=== PATIENT | female | born 1995 | race Caucasian/White ===

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

== ENCOUNTER 2017-08-11 | Emergency (ER) | payer SELFPAY ==
[2017-08-11 00:06] VITALS: BP 145/63
[2017-08-11] MEDS ORDERED: BENZONATATE 100 MG CAPSULE. PO ONE (00:15)
[2017-08-11] MEDS ORDERED: ONDANSETRON ODT 4 MG TAB.RAPDIS. PO ONE (00:15)
[2017-08-11] MEDS ORDERED: predniSONE 10 MG TABLET PO ONE (00:15)
[2017-08-11] MEDS ORDERED: IPRATRPIUM/ALBUTEROL 0.5/2.5MG 3 ML NEBU. NEB ONE (00:15)
--- NOTE | 2017-08-11 00:24 | PHYS DOC ---
Past Medical History Past Medical History: No Pertinent History Past Surgical History: Other Additional Past Surgical Histo: pt reports eye surgery Alcohol Use: None Drug Use: None Adult General Chief Complaint Chief Complaint: SORE THROAT HPI HPI Patient is a 21 year old female with no significant medical history who presents with a productive cough for 1-1/2 weeks and vomiting. Patient denies having posttussis emesis. She states she does not know if she is or not. Review of Systems Review of Systems Constitutional: Denies fever or chills [] Eyes: Denies change in visual acuity, redness, or eye pain [] HENT: Denies nasal congestion or sore throat [] Respiratory: reports cough denies shortness of breath [] Cardiovascular: No additional information not addressed in HPI [] GI:Reports vomiting. Denies abdominal pain, nausea, bloody stools or diarrhea [] : Denies dysuria or hematuria [] Musculoskeletal: Denies back pain or joint pain [] Integument: Denies rash or skin lesions [] Neurologic: Denies headache, focal weakness or sensory changes [] All other systems were reviewed and found to be within normal limits, except as documented in this note. Current Medications Current Medications Current Medications Medications (Trade) Dose Ordered Sig/Mat Start Time Stop Time Status Last Admin Dose Admin Albuterol/ Ipratropium (Duoneb) 3 ml 1X ONCE 08/11/17 00:15 08/11/17 00:16 DC 08/11/17 00:26 3 ML Benzonatate (Tessalon Perle) 100 mg 1X ONCE 08/11/17 00:15 08/11/17 00:16 DC 08/11/17 00:29 100 MG Ondansetron HCl (Zofran Odt) 4 mg 1X ONCE 08/11/17 00:15 08/11/17 00:16 DC 08/11/17 00:29 4 MG Prednisone (Prednisone) 50 mg 1X ONCE 08/11/17 00:15 08/11/17 00:16 DC 08/11/17 00:29 50 MG Allergies Allergies Allergies Coded Allergies Type Severity Reaction Last Updated Verified No Known Drug Allergies 12/21/16 No Physical Exam Physical Exam Constitutional: Well developed, well nourished, no acute distress, non-toxic appearance. [] HENT: Normocephalic, atraumatic, bilateral external ears normal, oropharynx moist, no oral exudates, nose normal. [] Eyes: PERRLA, EOMI, conjunctiva normal, no discharge. [] Neck: Normal range of motion, no tenderness, supple, no stridor. [] Cardiovascular:Heart rate regular rhythm, no murmur [] Lungs & Thorax: Patient is actively coughing in the ED, slightly diminished breath sounds to posterior lung bases. Abdomen: Bowel sounds normal, soft, no tenderness, no masses, no pulsatile masses. [] Skin: Warm, dry, no erythema, no rash. [] Back: No tenderness, no CVA tenderness. [] Extremities: No tenderness, no cyanosis, no clubbing, ROM intact, no edema. [] Neurologic: Alert and oriented X 3, normal motor function, normal sensory function, no focal deficits noted. [] Psychologic: Affect normal, judgement normal, mood normal. [] Current Patient Data Vital Signs Vital Signs Date Time Temp Pulse Resp B/P (MAP) Pulse Ox O2 Delivery O2 Flow Rate FiO2 08/11/17 00:27 100 Room Air 08/11/17 00:06 98.1 84 22 98.1 Lab Values Laboratory Tests Test 08/11/17 00:22 POC Urine HCG, Qualitative Hcg negative (Negative) EKG EKG [] Radiology/Procedures Radiology/Procedures [] Course & Med Decision Making Course & Med Decision Making Pertinent Labs and Imaging studies reviewed. (See chart for details) This is a 21-year-old female presenting to the ED today with a productive cough for 1-1/2 weeks with vomiting. test is negative.Symptoms are likely bronchitis her vomiting is likely posttussis emesis. She was started on prednisone and albuterol breathing treatments and Tessalon Perles and discharged with the same. She was also discharged with azithromycin. She was discharged with Zofran for nausea vomiting. Provided return precautions and discharged in stable condition. Dragon Disclaimer Dragon Disclaimer This electronic medical record was generated, in whole or in part, using a voice recognition dictation system. Departure Departure Impression: Primary Impression: Acute bronchitis Additional Impression: Vomiting Disposition: HOME, SELF-CARE Condition: STABLE Referrals: NO PCP (PCP) follow up with your doctor in 1-2 weeks Patient Instructions: Acute Bronchitis, Nausea and Vomiting, [id number] Additional Instructions: You were seen with symptoms consistent of bronchitis. Take the prescribed medications as ordered. Complete your antibiotics. Take Tylenol/ Motrin for pain or fever. Follow-up with your own doctor in the next 1-2 weeks. Scripts Azithromycin (AZITHROMYCIN TABLET) 250 Mg Tablet 1 PKG PO UD, #6 TAB Prov: CLIFF CABRERA APRN 08/11/17 Albuterol Sulfate (PROAIR HFA INHALER) 8.5 Gm Hfa.aer.ad 1 PUFF INH PRN Q6HRS Y for SHORTNESS OF BREATH, #1 INHALER 0 Refills Prov: CLIFF CABRERA APRN 08/11/17 Cetirizine Hcl (ZYRTEC) 10 Mg Tablet 1 TAB PO DAILY, #30 TAB 2 Refills Prov: CLIFF CABRERA APRN 08/11/17 Ondansetron (ZOFRAN ODT) 4 Mg Tab.rapdis 1 TAB SL Q8HRS, #15 TAB Prov: CLIFF CABRERA APRN 08/11/17 Benzonatate (TESSALON PERLE) 100 Mg Capsule 1 CAP PO TID, #30 CAP Prov: CLIFF CABRERA APRN 08/11/17 Prednisone (PREDNISONE) 50 Mg Tablet 1 TAB PO DAILY, #4 TAB Prov: CLIFF CABRERA APRN 08/11/17 Problem Qualifiers Primary Impression: Acute bronchitis Bronchitis organism: unspecified organism Qualified Codes: J20.9 - Acute bronchitis, unspecified Additional Impression: Vomiting Vomiting type: unspecified Vomiting Intractability: non-intractable Nausea presence: unspecified Qualified Codes: R11.10 - Vomiting, unspecified CLIFF CABRERA APRN Aug 11, 2017 00:24
[2017-08-11] MEDS ORDERED: ONDA4TAB10 SL (00:41)
[2017-08-11] MEDS ORDERED: BENZ100C PO (00:41)
[2017-08-11] MEDS ORDERED: PRED50TA PO (00:41)
[2017-08-11] MEDS ORDERED: AZIT250T6 PO (00:41)
[2017-08-11] MEDS ORDERED: CETI10TA22 PO (00:41)
[2017-08-11] MEDS ORDERED: PROAIR HFA8.5 GM INH (00:41)
[2017-08-11 06:42] LABS: NEGATIVE OBC STREP NEG; POSITIVE OBC STREP POS
== END 2017-08-11 00:51 | disposition home or self-care (01) ==
LOC: ER
DX: J20.9 Acute bronchitis, unspecified (principal)
CPT/HCPCS: 81025; 87070; 87880; 94640; 99284; J7512; J7620; Q0162

== ENCOUNTER 2018-06-30 22:50 | Emergency (ER) | payer SELFPAY ==
[~2018-06-30] VITALS: Ht 170.2 cm; Wt 90.7 kg
[~2018-06-30 22:50] MED LIST: AZIT250T6 PO; BENZ100C PO; CETI10TA22 PO; ONDA4TAB10 SL; PRED50TA PO; PROAIR HFA8.5 GM INH
[2018-06-30 23:10] VITALS: BP 136/60
[2018-06-30] MEDS ORDERED: LIDOCAINE 1% PF 2 ML VIAL. ONE (23:24)
[2018-06-30] MEDS ORDERED: SULF1TAB24 PO (23:43)
--- NOTE | 2018-06-30 23:43 | PHYS DOC ---
Past Medical History Past Medical History: No Pertinent History Past Surgical History: No Surgical History, Other Additional Past Surgical Histo: pt reports eye surgery Alcohol Use: None Drug Use: None Adult General Chief Complaint Chief Complaint: FINGER INJURY HPI HPI 22-year-old female presents for evaluation of pain and tenderness around the fingernail of the right index finger for one week. She reports yesterday she opened it and drained some purulent discharge from it. It is gotten more swollen and red. She is up-to-date on tetanus immunization. Denies other injuries. Review of Systems Review of Systems Constitutional: Denies fever or chills [] Musculoskeletal: Denies back pain or joint pain [] I Neurologic: Denies headache, focal weakness or sensory changes [] Endocrine: Denies polyuria or polydipsia [] All other systems were reviewed and found to be within normal limits, except as documented in this note. Current Medications Current Medications Current Medications Medications (Trade) Dose Ordered Sig/Mat Start Time Stop Time Status Last Admin Dose Admin Lidocaine HCl (Xylocaine-Mpf 1% 2ml Vial) 2 ml STK-MED ONCE 06/30/18 23:24 06/30/18 23:25 DC Allergies Allergies Allergies Coded Allergies Type Severity Reaction Last Updated Verified No Known Drug Allergies 12/21/16 No Physical Exam Physical Exam Constitutional: Well developed, well nourished, no acute distress, non-toxic appearance. [] Skin: Paronychia to right index finger Extremities: Tenderness to distal aspect of right index finger consistent with paronychia, redness and swelling around the nail, full range of motion to the finger Neurologic: Alert and oriented X 3, normal motor function, normal sensory function, no focal deficits noted. [] Psychologic: Affect normal, judgement normal, mood normal. [] Current Patient Data Vital Signs Vital Signs Date Time Temp Pulse Resp B/P (MAP) Pulse Ox O2 Delivery O2 Flow Rate FiO2 06/30/18 23:10 98.5 71 16 136/60 (85) 97 Room Air 98.5 EKG EKG [] Radiology/Procedures Radiology/Procedures [Incision and drainage was performed on the paronychia to the right index finger , 0.25 mg of lidocaine 1% was injected into the area, and 11 blade was used to make small opening, bloody drainage only, wound and finger were cleansed with Betadine and normal saline.] Course & Med Decision Making Course & Med Decision Making Pertinent Labs and Imaging studies reviewed. (See chart for details) [Incision and drainage was performed on the paronychia to the right index finger , patient is given prescription for Bactrim and instructed to do warm water soaks, follow-up with her primary care doctor in 2-3 days, return to ER for new or worsening symptoms.] Dragon Disclaimer Dragon Disclaimer This electronic medical record was generated, in whole or in part, using a voice recognition dictation system. Departure Departure Impression: Primary Impression: Paronychia Disposition: HOME, SELF-CARE Condition: STABLE Referrals: NO PCP (PCP) Patient Instructions: Paronychia, [id number] Scripts Sulfamethoxazole/Trimethoprim (BACTRIM DS TABLET) 1 Each Tablet 1 TAB PO BID, #20 TAB Prov: LENNOX CANNON APRN 06/30/18 LENNOX CANNON APRN Jun 30, 2018 23:43
== END 2018-07-01 00:02 | disposition home or self-care (01) ==
LOC: ER 22:50
DX: L03.011 Cellulitis of right finger (principal)
CPT/HCPCS: 10060; 99283

== ENCOUNTER 2020-02-19 17:49 | Emergency (ER) | payer SELFPAY ==
[~2020-02-19] VITALS: Ht 170.2 cm; Wt 100.0 kg
[~2020-02-19 17:49] MED LIST changes: +ALBU2.5V8 INH; -CETI10TA22 PO; +CETI10TA24 PO; -PROAIR HFA8.5 GM INH; +SULF1TAB24 PO
[2020-02-19 18:19] LABS: BILIRUBIN,URINE NEGATIVE (NEG); CLARITY,URINE CLEAR; COLOR,URINE YELLOW; NITRITE,URINE NEGATIVE (NEG); PROTEIN,URINE NEGATIVE (NEG-TRACE); UROBILINOGEN,URINE 0.2 mg/dL (0.2 mg/dL)
[2020-02-19] MEDS ORDERED: IV NORMAL SALINE 1000ML BAG 1,000 ML IV SCH (18:21)
--- NOTE | 2020-02-19 18:24 | PHYS DOC ---
Past Medical History Past Medical History: No Pertinent History Past Surgical History: No Surgical History Additional Past Surgical Histo: pt reports eye surgery Smoking Status: Never Smoker Alcohol Use: None Drug Use: None General Adult EDM: Chief Complaint: ABDOMINAL PAIN HPI: HPI: Patient is a 24 year old female who presents with complaint of right upper quadrant pain that started this morning. Patient rates pain at an 8 out of 10 and states that she has been having nausea and vomiting today. She states that she has had intermittent pain in this area despite having had cholecystectomy about 5 months ago. She states that the pain is exactly the same as before she had the gallbladder removed. She denies any fever. She does indicate that the pain radiates into her back just below the right shoulder blade. [] Review of Systems: Review of Systems: Constitutional: Denies fever or chills. [] Respiratory: Denies cough or shortness of breath. [] Cardiovascular: Denies chest pain or edema. [] GI: Complains of abdominal pain with nausea and vomiting. Denies diarrhea. [] Neurologic: Denies headache, focal weakness or sensory changes. [] A full 10 point review of systems has been reviewed and is otherwise negative. Heart Score: Risk Factors: Risk Factors: DM, Current or recent (<one month) smoker, HTN, HLP, family history of CAD, obesity. Risk Scores: Score 0 - 3: 2.5% MACE over next 6 weeks - Discharge Home Score 4 - 6: 20.3% MACE over next 6 weeks - Admit for Clinical Observation Score 7 - 10: 72.7% MACE over next 6 weeks - Early Invasive Strategies Allergies: Allergies: Allergies Coded Allergies Type Severity Reaction Last Updated Verified No Known Drug Allergies 12/21/16 No Physical Exam: PE: Constitutional: Well developed, well nourished, no acute distress, non-toxic appearance. [] HENT: Normocephalic, atraumatic, bilateral external ears normal, oropharynx moist, no oral exudates, nose normal. [] Eyes: PERRLA, EOMI, conjunctiva normal, no discharge. [] Neck: Normal range of motion, no tenderness, supple. [] Cardiovascular: Regular rate and rhythm [] Lungs & Thorax: Bilateral breath sounds clear to auscultation [] Abdomen: Bowel sounds normal, soft, with moderate epigastric and right upper quadrant tenderness. [] Skin: Warm, dry, no erythema, no rash. [] Extremities: No tenderness, no cyanosis, no clubbing, ROM intact, no edema. [] Neurologic: Alert and oriented X 3, no focal deficits noted. [] Current Patient Data: Labs: Laboratory Tests Test 02/19/20 18:06 POC Urine HCG, Qualitative Hcg negative (Negative) Vital Signs: Vital Signs Date Time Temp Pulse Resp B/P (MAP) Pulse Ox O2 Delivery O2 Flow Rate FiO2 02/19/20 18:08 98.3 86 20 150/74 (99) 97 Room Air 98.3 EKG: EKG: [] Radiology/Procedures: Radiology/Procedures: [] Impression: PROCEDURE: CT ABD PELV W/ IV CONTRST ONLY EXAM: Abdomen and pelvis CT with intravenous contrast. HISTORY: Pain. TECHNIQUE: Computed tomographic images of the abdomen and pelvis were obtained following the administration of intravenous contrast. Multiplanar reformatting was performed. *One or more of the following individualized dose reduction techniques were utilized for this examination: 1. Automated exposure control. 2. Adjustment of the mA and/or kV according to patient size. 3. Use of iterative reconstruction technique. COMPARISON: None. FINDINGS: Evaluation of the lower thorax is unremarkable. No suspicious hepatic lesion is seen. The spleen is mildly enlarged. The gallbladder is surgically absent. The pancreas, adrenal glands and kidneys are unremarkable. There is no appendicitis. There is no bowel obstruction. There is no abnormal bowel wall thickening. The urinary bladder, uterus and left ovary are unremarkable. There is a suspected dominant peripherally enhancing right ovarian cyst measuring 2.4 cm. There is no lymphadenopathy. There is no suspicious osseous lesion. There are multiple Schmorl's nodes within the lumbar spine. There is no suspicious osseous lesion. IMPRESSION: 1. No convincing acute abdominal finding. 2. 2.4 cm dominant right ovarian follicle/follicular cyst. 3. Mild splenomegaly. This may be within normal limits for patient body habitus. Electronically signed by: Kenya Nunez MD (02/19/2020 8:18 PM) [facility] Course & Med Decision Making: Course & Med Decision Making Pertinent Labs and Imaging studies reviewed. (See chart for details) [] Dragon Disclaimer: Dragon Disclaimer: This electronic medical record was generated, in whole or in part, using a voice recognition dictation system. Departure Departure Impression: Primary Impression: Right upper quadrant abdominal pain Additional Impression: Right ovarian cyst Disposition: HOME, SELF-CARE Condition: STABLE Referrals: NO PCP (PCP) Patient Instructions: Abdominal Migraine, Ovarian Cyst Scripts Ondansetron (ONDANSETRON ODT) 4 Mg Tab.rapdis 1 TAB PO PRN Q6-8HRS PRN for NAUSEA, #15 TAB Prov: JOSE TAYLOR Jr. DO 02/19/20 Hydrocodone/Apap 5-325 (NORCO 5-325 TABLET) 1 Each Tablet 1-2 EACH PO PRN Q6HRS PRN for PAIN, #15 as needed for pain Prov: JOSE TAYLOR Jr. DO 02/19/20 Justicifation of Admission Dx: Justifications for Admission: Justification of Admission Dx: Comment: (Not applicable) JOSE TAYLOR Jr. DO Feb 19, 2020 18:24
[2020-02-19] MEDS ORDERED: HYDROmorphone 2 MG/ML VIAL IV/SQ PRN (18:30)
[2020-02-19 18:37] LABS: BACTERIA,URINE FEW /HPF (0-FEW); RBC,URINE RARE /HPF (0-2); SQUAMOUS EPITHELIAL CELL,UR FEW /LPF; WBC,URINE OCC /HPF (0-4)
[2020-02-19 18:50] LABS: BASO # 0.1 x10^3/uL (0.0-0.2); BASO % 1 % (0-3); EOS % 0 % (0-3); HEMATOCRIT 36.9 % (36.0-47.0); HEMOGLOBIN 12.5 g/dL (12.0-15.5); LYMPH # 2.6 x10^3/uL (1.0-4.8); LYMPH % 24 % (24-48); MEAN CORPUSCULAR HEMOGLOBIN 28 pg (25-35); MEAN CORPUSCULAR HGB CONC 34 g/dL (31-37); MEAN CORPUSCULAR VOLUME 82 fL (79-100); MONO # 0.6 x10^3/uL (0.0-1.1); MONO % 5 % (0-9); NEUT # 7.5 x10^3/uL (1.8-7.7); NEUT % 70 % (31-73); PLATELET COUNT 267 x10^3/uL (140-400); RED BLOOD COUNT 4.49 x10^6/uL (3.50-5.40); RED CELL DISTRIBUTION WIDTH 16.2 % (11.5-14.5); WHITE BLOOD COUNT 10.8 x10^3/uL (4.0-11.0)
[2020-02-19 18:55] LABS: CALCIUM 9.2 mg/dL (8.5-10.1); CREATININE 0.9 mg/dL (0.6-1.0); GFR 78.3; POTASSIUM 4.1 mmol/L (3.5-5.1)
[2020-02-19 19:00] LABS: ALBUMIN 3.9 g/dL (3.4-5.0); ALBUMIN/GLOBULIN RATIO 1.3 (1.0-1.7); TOTAL BILIRUBIN 0.2 mg/dL (0.2-1.0)
[2020-02-19] MEDS ORDERED: ONDANSETRON PF 4 MG/2 ML VIAL. IVP ONE (19:00)
[2020-02-19] MEDS ORDERED: CONTRAST GIVEN. MC PRN (20:00)
[2020-02-19] MEDS ORDERED: IOHEXOL 300 MG/ML 100ML VIAL. IV ONE (20:00)
--- NOTE | 2020-02-19 20:21 | RAD ---
EXAM: Abdomen and pelvis CT with intravenous contrast. HISTORY: Pain. TECHNIQUE: Computed tomographic images of the abdomen and pelvis were obtained following the administration of intravenous contrast. Multiplanar reformatting was performed. *One or more of the following individualized dose reduction techniques were utilized for this examination: 1. Automated exposure control. 2. Adjustment of the mA and/or kV according to patient size. 3. Use of iterative reconstruction technique. COMPARISON: None. FINDINGS: Evaluation of the lower thorax is unremarkable. No suspicious hepatic lesion is seen. The spleen is mildly enlarged. The gallbladder is surgically absent. The pancreas, adrenal glands and kidneys are unremarkable. There is no appendicitis. There is no bowel obstruction. There is no abnormal bowel wall thickening. The urinary bladder, uterus and left ovary are unremarkable. There is a suspected dominant peripherally enhancing right ovarian cyst measuring 2.4 cm. There is no lymphadenopathy. There is no suspicious osseous lesion. There are multiple Schmorl's nodes within the lumbar spine. There is no suspicious osseous lesion. IMPRESSION: 1. No convincing acute abdominal finding. 2. 2.4 cm dominant right ovarian follicle/follicular cyst. 3. Mild splenomegaly. This may be within normal limits for patient body habitus. Electronically signed by: Kenya Nunez MD (02/19/2020 8:18 PM) [facility]
[2020-02-19] MEDS ORDERED: ONDA4TAB12 PO (21:18)
[2020-02-19] MEDS ORDERED: HYDR-3164 PO (21:18)
[2020-02-19 21:37] VITALS: BP 114/62
== END 2020-02-19 21:38 | disposition home or self-care (01) ==
LOC: ER 17:49
DX: N83.291 Other ovarian cyst, right side (principal); R10.11 Right upper quadrant pain; R11.2 Nausea with vomiting, unspecified; R10.13 Epigastric pain; Z98.890 Other specified postprocedural states
CPT/HCPCS: 36415; 74177; 80053; 81001; 81025; 83690; 85025; 96361; 96374; 96375; 99285; J1170; J2405; J7030; Q9967

== ENCOUNTER 2020-03-11 23:44 | Emergency (ER) | payer SELFPAY ==
[~2020-03-11] VITALS: Ht 170.2 cm; Wt 109.0 kg
[~2020-03-11 23:44] MED LIST changes: +HYDR-3164 PO; +ONDA4TAB12 PO
[2020-03-12 00:01] VITALS: BP 154/82
--- NOTE | 2020-03-12 00:24 | PHYS DOC ---
Past Medical History Past Medical History: No Pertinent History Past Surgical History: No Surgical History Additional Past Surgical Histo: pt reports eye surgery Smoking Status: Never Smoker Alcohol Use: None Drug Use: None General Adult EDM: Chief Complaint: SORE THROAT HPI: HPI: Patient is a 24 year old female presenting to the ED with a chief complaint of sore throat. Patient states that she is having symptoms the last 2 days. Patient states that she also had a fever earlier today but took medication at home. Patient states that she is able to swallow her saliva. Patient denies . Review of Systems: Review of Systems: Constitutional: Complains of fever [] Eyes: Denies change in visual acuity. [] HENT: Complains of sore throat [] Respiratory: Denies cough or shortness of breath. [] Cardiovascular: Denies chest pain or edema. [] GI: Denies abdominal pain, nausea, vomiting, bloody stools or diarrhea. [] : Denies dysuria. [] Neurologic: Denies headache, focal weakness or sensory changes. [] Heart Score: Risk Factors: Risk Factors: DM, Current or recent (<one month) smoker, HTN, HLP, family history of CAD, obesity. Risk Scores: Score 0 - 3: 2.5% MACE over next 6 weeks - Discharge Home Score 4 - 6: 20.3% MACE over next 6 weeks - Admit for Clinical Observation Score 7 - 10: 72.7% MACE over next 6 weeks - Early Invasive Strategies Current Medications: Current Medications Medications (Trade) Dose Ordered Sig/Mat Start Time Stop Time Status Last Admin Dose Admin Amoxicillin (Amoxil) 500 mg 1X ONCE 03/12/20 00:45 03/12/20 00:46 Dexamethasone Sodium Phosphate (Decadron) 10 mg 1X ONCE 03/12/20 00:30 03/12/20 00:31 Allergies: Allergies: Allergies Coded Allergies Type Severity Reaction Last Updated Verified No Known Drug Allergies 12/21/16 No Physical Exam: PE: Constitutional: Well developed, well nourished, no acute distress, non-toxic appearance. [] HENT: Normocephalic, atraumatic, pharyngeal erythema and enlarged tonsils Eyes: EOMI Neck: Normal range of motion Respiratory: No respiratory distress Extremities: No tenderness, ROM intact Neurologic: Alert and oriented X 3 EKG: EKG: [] Radiology/Procedures: Radiology/Procedures: [] Course & Med Decision Making: Course & Med Decision Making Pertinent Labs reviewed. (See chart for details) Strep screen ordered. Patient was given oral Decadron. Patient is also given first dose of antibiotics. Discussed results and plan of care with patient. Patient is instructed to follow up with PCP in one to 2 days. Appropriate discharge instructions given to patient to return to the ED or to seek immediate medical evaluation. Patient is instructed to return to the ED if symptoms worsen or if any concerns. Dragon Disclaimer: Yudy Disclaimer: This electronic medical record was generated, in whole or in part, using a voice recognition dictation system. Departure Departure Impression: Primary Impression: Strep pharyngitis Disposition: HOME, SELF-CARE Condition: STABLE Referrals: NO PCP (PCP) Patient Instructions: Strep Throat Additional Instructions: Discussed results and plan of care with patient. Patient is instructed to follow up with PCP in one to 2 days. Appropriate discharge instructions given to patient to return to the ED or to seek immediate medical evaluation. Patient is instructed to return to the ED if symptoms worsen or if any concerns. Scripts Amoxicillin (AMOXICILLIN) 500 Mg Capsule 1 CAP PO TID, #30 CAP Prov: CHETAN PRINGLE DO 03/12/20 Justicifation of Admission Dx: Justifications for Admission: Justification of Admission Dx: CHETAN Corrales DO Mar 12, 2020 00:24
[2020-03-12] MEDS ORDERED: DEXAMETHASONE SOD PHOS 20 MG/5 ML VIAL. PO ONE (00:30)
[2020-03-12] MEDS ORDERED: AMOX500C PO (00:30)
[2020-03-12] MEDS ORDERED: AMOXICILLIN 250 MG CAPSULE. PO ONE (00:45)
== END 2020-03-12 00:40 | disposition home or self-care (01) ==
LOC: ER 23:44
DX: J02.0 Streptococcal pharyngitis (principal); B95.5 Unspecified streptococcus as the cause of diseases classified elsewhere
CPT/HCPCS: 87070; 87880; 99283; J1100